=== PATIENT | female | born 1985 | race Caucasian/White ===

== ENCOUNTER → 2020-01-04 13:13 | Outpatient (CLI) | payer OTHER, SELFPAY ==
--- NOTE | ~2020-01-04 | MR_ITS ---
EXAMINATION: MR knee RT wo con DATE: 01/04/2020 14:28 INDICATION: Right knee strain with several months of intermittent generalized right knee pain TECHNIQUE: Magnetic resonance imaging (MRI) of the right knee was performed without intravenous contr ast. Sequences included coronal PD-weighted FSE, coronal PD-weighted FS FSE, sagittal T2-weighted FS E, sagittal PD-weighted FS FSE and axial PD weighted fat saturated FSE. COMPARISON: None. FINDINGS: Medial compartment: Medial meniscus is normal. Articular cartilage is normal. Lateral compartment: Lateral meniscus is normal. Articular cartilage is normal. Patellofemoral compartment: There is deep chondral fissuring at the lateral patellar facet and apical ridge. Minimal underlying s ubchondral edema at the apical ridge and immediately adjacent medial side of the lateral facet. Troch lear cartilage is normal. Ligaments and tendons: Anterior and posterior cruciate ligaments are normal. The medial collateral ligament and fibular adonay ateral ligament complex are normal. The extensor mechanism is normal. The visualized medial and later al hamstring tendons as well as the iliotibial band are normal. Fluid: Physiologic amount of fluid in the joint space. No loose osteochondral bodies identified. Osseous/other: Slight lateral patellar tilt and approximately 6 mm lateral patellar subluxation relative to the troc hlear groove. Aside from the minimal subarticular edema at the patella there is normal marrow signal. Small low signal intensity bone island underlying the anterior aspect of the medial tibial plateau. No fracture or pathologic marrow replacing process. IMPRESSION: 1. Mild lateral patellar tilt and subluxation with high-grade chondromalacia with deep fissuring and minimal underlying subarticular edema at the patellar apical ridge and lateral facet. Otherwise unrem arkable right knee MRI. Reviewed, dictated and finalized at location A. IMPRESSION: 1. Mild lateral patellar tilt and subluxation with high-grade chondromalacia wi th deep fissuring and minimal underlying subarticular edema at the patellar api herson ridge and lateral facet. Otherwise unremarkable right knee MRI.
== END ==
DX: M25.561 Pain in right knee (principal)
CPT/HCPCS: 73721

== ENCOUNTER 2020-02-11 15:00 | Outpatient (RCR) | payer OTHER, SELFPAY ==
--- NOTE | 2020-01-13 16:11 | PTOPEVAL ---
Thank you for referring Anahi Mahajan to [facility]. Please review, sign, date and return this plan of care DENIZ. Pt referred to therapy due to right knee pain with patellar tracking impairments. She requires additional skilled therapy to address noted impairments. Cont PT 2x/wk x 3 wk to achieve therapy goals. I agree with and certify that the following plan of care is medically necessary. Referring Physician Date Referring Provider: *PT Outpatient Evaluation Start: 01/13/20 14:51 Freq: Status: Active Protocol: Document 01/13/20 14:51 ANTHONY (Rec: 01/13/20 15:46 ANTHONY [id number]) Therapy Assessment Status Assessment Status Assessment Status Evaluation Outpatient Past Medical History Past Medical History Source of Past Medical History Patient,Recalled from Previous Visit, Confirmed with Patient /Family Neurological History Hx Neurological Disorders No Significant History Cardiovascular History Hx Cardiac Disorders No Significant History Respiratory History Hx Respiratory Disorders No Significant History Gastrointestinal History Hx Gastrointestinal Disorders No Significant History Genitourinary History Hx Genitourinary Disorders No Significant History Musculoskeletal History Hx Musculoskeletal Disorders No Significant History Hematological History Hx Hematological Disorders No Significant History Endocrine History Hx Endocrine Disorders No Significant History HEENT History Hx Eye Surgery Yes: LASIK Hx Other HEENT Disorders Yes: WISDOM TEETH SURGICALLY REMOVED Integumentary History Hx Skin Disorders No Significant History Reproductive History Hx Abnormal Uterine Bleeding Yes Hx Other Reproductive Disorders Yes: D&C FOR MISSED AB Psychosocial History Hx Psychiatric Disorders No Significant History Pain History History of Any Previous or Ongoing No Significant History Instance of Pain Anesthesia History Hx Post-Op Nausea/Vomiting Yes Evaluation Information Problem Diagnosis right knee pain, paterllofemoral tracking problem. Onset 08/26/19 Subjective Information She had to catch pt falling to Query Text:As Reported By Patient/ the floor on 08/26/19. She Family braced the pt's fall with her right knee. Reports the knee felt bruised afterwards. She felt swelling of the knee. She was furloughed for a few weeks with decreased activities, but the pain continued when
--- NOTE | 2020-02-11 15:56 | PTOPEVAL ---
Thank you for referring Anahi Mahajan to [facility].? Pt has received 6 therapy visits to address right knee pain. She has improved pain, improved LE strength and improved performance with advanced movement task. She is indep with her HEP. She continues to have intermittent right knee pain that is not consistent with testing or activities. Will hold chart open for 30 day then DC if no additional therapy planned. Please review, sign, date and return this plan of care DENIZ. I agree with and certify that the following plan of care is medically necessary. Referring Physician Date Attending Provider: PHYSICIAN NOT ON STAFF Physical Therapy progress note *PT Outpatient Evaluation Start: 01/13/20 14:51 Freq: Status: Active Protocol: Document 02/11/20 15:02 CAP (Rec: 02/11/20 15:52 [facility] [id number]) Therapy Assessment Status Assessment Status Assessment Status Re-evaluation Outpatient Past Medical History Past Medical History Source of Past Medical History Patient,Recalled from Previous Visit, Confirmed with Patient /Family Neurological History Hx Neurological Disorders No Significant History Cardiovascular History Hx Cardiac Disorders No Significant History Respiratory History Hx Respiratory Disorders No Significant History Gastrointestinal History Hx Gastrointestinal Disorders No Significant History Genitourinary History Hx Genitourinary Disorders No Significant History Musculoskeletal History Hx Musculoskeletal Disorders No Significant History Hematological History Hx Hematological Disorders No Significant History Endocrine History Hx Endocrine Disorders No Significant History HEENT History Hx Eye Surgery Yes: LASIK Hx Other HEENT Disorders Yes: WISDOM TEETH SURGICALLY REMOVED Integumentary History Hx Skin Disorders No Significant History Reproductive History Hx Abnormal Uterine Bleeding Yes Hx Other Reproductive Disorders Yes: D&C FOR MISSED AB Psychosocial History Hx Psychiatric Disorders No Significant History Pain History History of Any Previous or Ongoing No Significant History Instance of Pain Anesthesia History Hx Post-Op Nausea/Vomiting Yes Evaluation Information Problem Diagnosis right knee pain, paterllofemoral tracking problem. Onset 08/26/19 Additional Evaluation Detail She had to catch pt falling to the floor on 08/26/19. She braced the pt's fall with her right knee. Reports the knee felt bruised afterwards. Subjective Information She denies any swelling of the Query Text:As Reported By Patient/ knee.
--- NOTE | 2020-03-01 13:35 | PCPTNOTE ---
Admitting Provider: Attending Provider: PHYSICIAN NOT ON STAFF Patient:Anahi Mahajan Date of :1985 Discharge Note Patient has not returned for any further treatments since 02/11/2020, therefore she will be discharged at this time. Patient?s initial visit was on 01/13/2020 14:45 and she had a total of 6 visits. The goals have been met at this time. Thank you for referring this patient to [facility]. Please review, sign, date and return this discharge summary DENIZ. I have been updated about the patient's current status and I agree with discharge from the above service at this time. Referring Physician Date
== END 2020-03-01 14:14 | disposition home or self-care (01) ==
LOC: ANHPT 15:00
DX: M25.561 Pain in right knee (principal)
CPT/HCPCS: 97035; 97110; 97112; 97116; 97140; 97161

== ENCOUNTER 2020-04-15 15:45 | Outpatient (RCR) | payer OTHER, SELFPAY ==
--- NOTE | 2020-03-14 15:21 | PTOPEVAL ---
Thank you for referring Anahi Mahajan to [facility].? The patient is scheduled to be seen for therapy? 2 x/week for 4 weeks. Please review, sign, date and return this plan of care DENIZ. I agree with and certify that the following plan of care is medically necessary. Referring Physician Date Admitting Provider: Attending Provider: Dr. Marco Hinojosa MD *PT Outpatient Evaluation Start: 03/14/20 14:03 Freq: Status: Active Protocol: Document 03/14/20 14:05 ANTHONY (Rec: 03/14/20 15:02 ANTHONY [id number]) Therapy Assessment Status Assessment Status Assessment Status Evaluation Outpatient Past Medical History Past Medical History Source of Past Medical History Patient,Recalled from Previous Visit, Confirmed with Patient /Family Neurological History Hx Neurological Disorders No Significant History Cardiovascular History Hx Cardiac Disorders No Significant History Respiratory History Hx Respiratory Disorders No Significant History Gastrointestinal History Hx Gastrointestinal Disorders No Significant History Genitourinary History Hx Genitourinary Disorders No Significant History Musculoskeletal History Hx Musculoskeletal Disorders No Significant History Hematological History Hx Hematological Disorders No Significant History Endocrine History Hx Endocrine Disorders No Significant History HEENT History Hx Eye Surgery Yes: LASIK Hx Other HEENT Disorders Yes: WISDOM TEETH SURGICALLY REMOVED Integumentary History Hx Skin Disorders No Significant History Reproductive History Hx Abnormal Uterine Bleeding Yes Hx Other Reproductive Disorders Yes: D&C FOR MISSED AB Psychosocial History Hx Psychiatric Disorders No Significant History Pain History History of Any Previous or Ongoing No Significant History Instance of Pain Anesthesia History Hx Post-Op Nausea/Vomiting Yes Evaluation Information Problem Diagnosis right knee pain, patellar maltracking, chondromaliacia/ chondrosis Onset 08/26/19 Cause catching a pt at work Additional Evaluation Detail She had to catch pt falling to the floor on 08/26/19. She braced the pt's fall with her right knee. Reports the knee felt bruised afterwards. She felt swelling of the knee. She works at [employer]. She has received 6 therapy visits from 01/13/20-
--- NOTE | 2020-04-12 16:29 | PTOPEVAL ---
Thank you for referring Anahi Mahajan to [facility].? The patient is scheduled to be seen for therapy?1 final visit to complete HEP and skilled teaching. She has achieved her therapy goals at this time. Please review, sign, date and return this plan of care DENIZ. I agree with and certify that the following plan of care is medically necessary. Referring Physician Date Referring Provider: Dr. Marco Hinojosa *PT Outpatient Evaluation Start: 03/14/20 14:03 Freq: Status: Active Protocol: Document 04/12/20 15:32 CAP (Rec: 04/12/20 16:16 CAP [id number]) Therapy Assessment Status Assessment Status Assessment Status Re-evaluation Evaluation Information Problem Diagnosis right knee pain, patellar maltracking, chondromaliacia/ chondrosis Onset 08/26/19 Cause catching a pt at work Additional Evaluation Detail She had to catch pt falling to the floor on 08/26/19. She braced the pt's fall with her right knee. Reports the knee felt bruised afterwards. She felt swelling of the knee. She works at [email or web address]. She has received 6 therapy visits from 01/13/20-02/11/20 to address her knee pain. [ End ] Subjective Information She was seen by an orthopedic Query Text:As Reported By Patient/ MD who gave her a steroid Family injection in the right knee. She denies tightness on the posterior/medial knee aspect since she has been stretching the leg muscles. She reports her hamstring muscle cont to feel tight and ropey. She denies any acheness on sup knee region. She reports improved puffiness of the knee. Denies any sharp pain behind the knee cap. Denies acheness into right thigh. She is performing her HEP a few times a week without increased pain. She is performing yoga and fitness routine without limitations or pain. She did feel like the le
--- NOTE | 2020-04-15 16:14 | PCPTNOTE ---
Admitting Provider: Attending Provider: PHYSICIAN NOT ON STAFF Patient:Anahi Mahajan Date of :1985 Discharge Note Patient has received 8 therapy visits from 03/14/2020 to 04/15/20. She is indep with her home exercise program and understanding of self-management of her knee pain and progression of her fitness program to prevent knee strain and injury. The goals have been met at this time. Thank you for referring this patient to [facility]. Please review, sign, date and return this discharge summary DENIZ. I have been updated about the patient's current status and I agree with discharge from the above service at this time. Referring Physician Date
== END 2020-04-18 10:57 | disposition home or self-care (01) ==
LOC: ANHPT 15:45
DX: M22.41 Chondromalacia patellae, right knee (principal); M25.561 Pain in right knee
CPT/HCPCS: 97035; 97110; 97112; 97161

== ENCOUNTER 2020-11-29 08:43 | Outpatient (CLI) | payer OTHER, SELFPAY ==
[2020-11-29 09:35] LABS: Basophils Percent Auto 0.7 % (0.2-1.2); Eosinophils Absolute Auto 0.1 K/mm3 (0-0.3); Eosinophils Percent Auto 1.1 % (0-4.4); Hematocrit 41.6 % (37.0-47.0); Immature Granulocyte Absolute 0.01 K/mm3 (0.00-0.031); Immature Granulocyte Percent A 0.2 % (0-0.5); Lymphocytes Absolute Auto 1.94 K/mm3 (0.9-3.2); Lymphocytes Percent Auto 35.2 % (18.3-44.2); Mean Corpuscular HGB Conc 33.7 g/dl (32-36); Mean Corpuscular Volume 95.2 fl (80-100); Mean Platelet Volume 9.3 fl (7.4-10.4); Monocytes Absolute Auto 0.4 K/mm3 (0.1-0.6); Monocytes Percent Auto 6.7 % (2.6-8.5); Neutrophils Absolute Auto 3.1 K/mm3 (1.3-6.7); Neutrophils Percent Auto 56.1 % (45.5-73.1); Platelet Count Result 283 k/mm3 (150-375); Red Blood Count 4.37 M/mm3 (4.2-5.4); Red Cell Distribution Width 12.7 % (11.5-14.5); White Blood Count 5.5 K/mm3 (4.5-10.0)
[2020-11-29 09:52] LABS: Alanine Aminotransferase 19 U/L (4-35); Albumin Level 4.6 g/dL (3.5-5.1); Alkaline Phosphatase 44 U/L (38-126); Anion Gap 10 mmol/L (8-16); Aspartate Amino Transferase 26 U/L (14-36); Bilirubin,Total 0.8 mg/dL (0.2-1.3); Blood Urea Nitrogen 14 mg/dL (7-17); Calcium 9.5 mg/dL (8.4-10.2); Carbon Dioxide 25 mmol/L (22-30); Chloride 106 mmol/L (98-107); Cholesterol 171 mg/dL (0-200); Estimated Glomerular Filt Rate > 60; Glucose 84 mg/dL (65-105); HDL Direct 83 mg/dL; Sodium 141 mmol/L (137-145); Triglycerides 54 mg/dL (<150)
[2020-11-29 10:03] LABS: LDL Cholesterol Direct 63 mg/dL
[2020-11-29 10:18] LABS: Vitamin D 25 Hydroxy 98.6 ng/mL
== END 2020-11-29 08:44 | disposition home or self-care (01) ==
PROVIDERS: PCP Physician Assistant; Visit Provider Physician Assistant
DX: Z00.00 Encounter for general adult medical examination without abnormal findings (principal)
CPT/HCPCS: 36415; 80053; 80061; 82306; 84443; 85025

== ENCOUNTER 2020-12-03 08:12 | Emergency (ER) | payer OTHER, SELFPAY ==
--- NOTE | ~2020-12-03 | XR_ITS ---
EXAMINATION: XR chest 2V EXAM DATE: 12/03/2020 08:24 INDICATION: Central chest pain. TECHNIQUE: Frontal and lateral projections of the chest obtained and reviewed. Comparison is made to prior examination from 03/07/2011. FINDINGS: Moderate hyperinflation. The lungs are clear. There are no pleural effusions. The cardiom ediastinal silhouette is within normal limits. There is no pneumothorax suspected. Mild thoracic sc oliosis. IMPRESSION: 1. No acute cardiopulmonary findings. 2. Hyperinflation. Reviewed, dictated and finalized at location A.
--- NOTE | 2020-12-03 08:16 | ECG_ITS ---
Measurements Intervals [place] Rate: 101 P: 71 WV: 153 QRS: 62 QRSD: 93 T: 33 QT: 322 QTc: 419 Interpretive Statements SINUS TACHYCARDIA BORDERLINE ECG Electronically Signed On 12-03-2020 8:42:58 CDT by Ted Kingston D.O.
[2020-12-03 08:18] VITALS: BP 146/98; PULSE 114; RESP 14; TEMP 36.8; O2SAT 100
[2020-12-03] MEDS: KETOROLAC 30 MG/ML VIAL (*BKC) IV PUSH (08:46)
[2020-12-03 08:50] LABS: Basophils Percent Auto 0.5 % (0.2-1.2); Eosinophils Absolute Auto 0.1 K/mm3 (0-0.3); Eosinophils Percent Auto 1.1 % (0-4.4); Hematocrit 42.9 % (37.0-47.0); Hemoglobin 14.5 g/dL (12.0-15.0); Immature Granulocyte Absolute 0.02 K/mm3 (0.00-0.031); Immature Granulocyte Percent A 0.2 % (0-0.5); Lymphocytes Absolute Auto 1.71 K/mm3 (0.9-3.2); Lymphocytes Percent Auto 20.5 % (18.3-44.2); Mean Corpuscular HGB Conc 33.8 g/dl (32-36); Mean Corpuscular Hemoglobin 32.5 pg (26-34); Mean Corpuscular Volume 96.2 fl (80-100); Mean Platelet Volume 9.5 fl (7.4-10.4); Monocytes Absolute Auto 0.5 K/mm3 (0.1-0.6); Neutrophils Percent Auto 71.7 % (45.5-73.1); Platelet Count Result 269 k/mm3 (150-375); Red Blood Count 4.46 M/mm3 (4.2-5.4); Red Cell Distribution Width 12.8 % (11.5-14.5); White Blood Count 8.4 K/mm3 (4.5-10.0)
[2020-12-03 09:06] LABS: Anion Gap 10 mmol/L (8-16); Blood Urea Nitrogen 12 mg/dL (7-17); Calcium 9.6 mg/dL (8.4-10.2); Carbon Dioxide 24 mmol/L (22-30); Chloride 106 mmol/L (98-107); Estimated CRCL calculation 78 ml/min; Estimated Glomerular Filt Rate > 60; Glucose 120 mg/dL (65-105); Potassium 3.4 mmol/L (3.4-5.0); Sodium 140 mmol/L (137-145)
[2020-12-03 09:09] LABS: INR 1.1; Partial Thromboplastin Time 27.3 SECONDS (22.3-36.8); Prothrombin Time 14.3 Seconds (11.1-14.7)
[2020-12-03 09:12] LABS: D Dimer 0.28 ug/mL (<0.48)
[2020-12-03 09:18] LABS: Troponin I < 0.012 ng/mL (0.000-0.034)
--- NOTE | 2020-12-03 10:08 | ED.CHESTPAIN ---
HPI - Chest Pain General Chief Complaint: Chest Pain Stated Complaint: Chest Pain Time Seen by Provider: 12/03/20 08:20 History of Present Illness HPI narrative: Patient is a 35-year-old female who presents ER with chest pain intermittent over the last month. Worse with deep breath. No fevers or chills or sweats. Denies sinus congestion or productive cough. No hemoptysis. No lower extremity swelling or calf cramping. No previous history of blood clots. She is on low-dose control. Denies exertional chest pain. Cannot report any alleviating factors. Pain seems to be more on the left side without radiation. Related Data Home Medications Medication Instructions Recorded Confirmed Juice Plus 4 cap PO DAILY 06/05/19 06/18/19 multivitamin 1 tablet PO DAILY 06/05/19 06/18/19 [id number] oil [[place]-3 1 cap PO DAILY 06/05/19 06/18/19 Fish Oil] Allergies Allergy/AdvReac Type Severity Reaction Status Date / Time No Known Allergies Allergy Unverified 12/03/20 08:26 Review of Systems Review of Systems: All systems reviewed & are unremarkable except as noted in HPI and below Constitutional: Constitutional: Denies chills, Denies fever(s) and Denies weakness ENT: Denies nasal congestion and Denies sore throat Cardiovascular: Cardiovascular: Reports chest pain, Denies rapid heart rate and Denies radiating jaw, neck or arm pain Respiratory: Respiratory: Denies cough, Denies dyspnea and Denies wheezing Comments: No hemoptysis Gastrointestinal: Gastrointestinal: Denies nausea and Denies vomiting PMFSH Past Medical History Medical History (Updated 12/03/20 @ 10:13 by Mohit Stringer MD) Abnormal uterine bleeding (AUB) History of hysteroscopy Social History Social History (System 08/02/20 @ 09:59 by Chaim Hernandez) Smoking status: Never smoker Alcohol intake: current Exam Narrative: Exam Narrative: GENERAL: Well-appearing, well-nourished, and in no acute distress. HEAD: Normocephalic, atraumatic. CHEST: Clear to auscultation. No respiratory distress. HEART: Tachycardic and regular. No murmur heard. Normal peripheral pulses. ABDOMEN: Soft, nontender, nondistended. EXTREMITIES: Normal range of motion. No edema. SKIN: Warm, dry, no rash. NEURO: Alert and oriented x3. PSYCH: Normal mood and affect. Course Course Emergency Course: Patient informed of results. Modest improvement of pain with Toradol. D-dimer negative, chest x-ray clear, negative troponin with normal EKG. HR normalized w/o intervention. Recommend follow-up with PCP and scheduled anti-inflammatory medication. Vital Signs Vital signs: Vital Signs Temperature 98.3 F 12/03/20 08:18 Pulse Rate 114 H 12/03/20 08:18 Respiratory Rate 14 12/03/20 08:18 Blood Pressure 146/98 H 12/03/20 08:18 Pulse Oximetry 100 12/03/20 08:18 Temperature 98.3 F 12/03/20 08:18 Pulse Rate 114 H 12/03/20 08:18 Respiratory Rate 14 12/03/20 08:18 Blood Pressure 146/98 H 12/03/20 08:18 Pulse Oximetry 100 12/03/20 08:18 MDM - Chest Pain Lab Data Result diagrams: 12/03/20 08:34 12/03/20 08:35 Labs: Lab Results 12/03/20 12/03/20 12/03/20 Range/Units 08:34 08:35 08:35 WBC 8.4 (4.5-10.0) K/mm3 RBC 4.46 (4.2-5.4) M/mm3 Hgb 14.5 (12.0-15.0) g/dL Hct 42.9 (37.0-47.0) % MCV 96.2 (80-100) fl MCH 32.5 (26-34) pg MCHC 33.8 (32-36) g/dl RDW 12.8 (11.5-14.5) % Plt Count 269 (150-375) k/mm3 MPV 9.5 (7.4-10.4) fl Immature Gran % (Auto) 0.2 (0-0.5) % Neut % (Auto) 71.7 (45.5-73.1) % Lymph % (Auto) 20.5 (18.3-44.2) % Hockley % (Auto) 6.0 (2.6-8.5) % Eos % (Auto) 1.1 (0-4.4) % Baso % (Auto) 0.5 (0.2-1.2) % Lymph # (Auto) 1.71 (0.9-3.2) K/mm3 Hockley # (Auto) 0.5 (0.1-0.6) K/mm3 Eos # (Auto) 0.1 (0-0.3) K/mm3 Baso # (Auto) 0.0 (0.0-0.1) K/mm3 Abs Immat Gran (auto) 0.02 (0.00-0.031) K/mm3 Absolute Neuts
[2020-12-03 10:18] VITALS: BP 116/82; PULSE 85; RESP 16; O2SAT 97
== END 2020-12-03 10:30 | disposition home or self-care (01) ==
PROVIDERS: Emergency Provider Emergency Medicine; PCP Physician Assistant
DX: R07.89 Other chest pain (principal); R00.0 Tachycardia, unspecified
CPT/HCPCS: 36415; 71046; 80048; 84484; 85025; 85380; 85610; 85730; 93005; 96374; 99284; J1885

== ENCOUNTER 2021-12-01 13:21 | Outpatient (CLI) | payer OTHER, SELFPAY ==
[2021-12-01 08:37] LABS: Basophils Percent Auto 0.8 % (0.2-1.2); Eosinophils Absolute Auto 0.1 K/mm3 (0-0.3); Eosinophils Percent Auto 2.4 % (0-4.4); Hematocrit 42.8 % (37.0-47.0); Hemoglobin 14.5 g/dL (12.0-15.0); Immature Granulocyte Absolute 0.02 K/mm3 (0.00-0.031); Immature Granulocyte Percent A 0.4 % (0-0.5); Lymphocytes Absolute Auto 1.87 K/mm3 (0.9-3.2); Lymphocytes Percent Auto 37.2 % (18.3-44.2); Mean Corpuscular HGB Conc 33.9 g/dl (32-36); Mean Corpuscular Hemoglobin 33.2 pg (26-34); Mean Corpuscular Volume 97.9 fl (80-100); Mean Platelet Volume 9.4 fl (7.4-10.4); Monocytes Absolute Auto 0.4 K/mm3 (0.1-0.6); Monocytes Percent Auto 8.5 % (2.6-8.5); Neutrophils Absolute Auto 2.6 K/mm3 (1.3-6.7); Neutrophils Percent Auto 50.7 % (45.5-73.1); Platelet Count Result 251 k/mm3 (150-375); Red Blood Count 4.37 M/mm3 (4.2-5.4); Red Cell Distribution Width 12.5 % (11.5-14.5)
[2021-12-01 08:57] LABS: Alanine Aminotransferase 17 U/L (6-35); Albumin Level 4.5 g/dL (3.5-5.1); Alkaline Phosphatase 45 U/L (38-126); Anion Gap 5 mmol/L (8-16); Aspartate Amino Transferase 20 U/L (14-36); Bilirubin,Total 0.8 mg/dL (0.2-1.3); Blood Urea Nitrogen 16 mg/dL (7-17); Calcium 9.1 mg/dL (8.4-10.2); Carbon Dioxide 27 mmol/L (22-30); Chloride 107 mmol/L (98-107); Cholesterol 181 mg/dL (0-200); Estimated Glomerular Filt Rate > 60; Glucose 80 mg/dL (65-110); HDL Direct 70 mg/dL; Potassium 4.4 mmol/L (3.4-5.0); Sodium 139 mmol/L (137-145); Triglycerides 77 mg/dL (<150)
[2021-12-01 09:08] LABS: LDL Cholesterol Direct 83 mg/dL
[2021-12-01 10:25] LABS: Vitamin D 25 Hydroxy 84.1 ng/mL
== END 2021-12-01 13:22 | disposition home or self-care (01) ==
LOC: ANHLAB 12-14 13:21
PROVIDERS: PCP Physician Assistant; Visit Provider Physician Assistant
DX: Z00.00 Encounter for general adult medical examination without abnormal findings (principal)
CPT/HCPCS: 80053; 80061; 80307; 82306; 84443; 85025

== ENCOUNTER 2021-12-04 02:04 | Day surgery (SDC) | payer OTHER, SELFPAY ==
[2021-11-15 15:22] VITALS: BMI 24.3
[2021-12-04 10:10] VITALS: BP 127/87; PULSE 76; RESP 18; TEMP 36.4; O2SAT 100; BMI 24.5
[2021-12-04] MEDS: LACTATED RINGERS 1,000 ML 150 ML IV CONT (10:37)
--- NOTE | 2021-12-04 10:38 | WPDANESEPPF ---
Anes - Initial Pre Proc Eval Procedure: Operation Date: 12/04/21 11:30 Proposed Procedures p Screening Colonoscopy - Lazaro Miguel MD Date/Time: 12/04/21 10:38 Surgeon: Lazaro Miguel MD Pre Op Diagnosis: family hx colon polyps, neoplasm screening Patient Data Age: 36 Gender: F Height: 1.68 m Weight: 68.9 kg Last Vital Signs Temp 36.4 C 12/04/21 10:10 Pulse 76 12/04/21 10:10 Resp 18 12/04/21 10:10 BP 127/87 12/04/21 10:10 Pulse Ox 100 12/04/21 10:10 O2 Del Method Room Air 12/04/21 10:10 Allergies Allergy/AdvReac Type Severity Reaction Status Date / Time No Known Allergies Allergy Verified 12/04/21 10:18 Home Medications Medication Instructions Recorded Confirmed Type Juice Plus 4 cap PO DAILY 06/05/19 12/04/21 History multivitamin 1 tablet PO DAILY 06/05/19 12/04/21 History sodium sul 1.479 gram-potas ch See Rx Instructions PO PER PKG DIR 11/02/21 12/04/21 Rx 0.188 gram-magnes sul 0.225 gram #24 tabs tablet (Sutab) sodium sul 1.479 gram-potas ch See Rx Instructions PO PER PKG DIR 11/03/21 12/04/21 Rx 0.188 gram-magnes sul 0.225 gram #24 tabs tablet (Sutab) norethindrone 1 mg-ethinyl 1 tablet PO DAILY 11/15/21 12/04/21 History estradiol 10 mcg (24)-iron 10 mcg(2) tablet (Lo Loestrin Fe) Patient hx anesthesia problems: none Family hx anesthesia problems: none Results Review: All pre-operative results and documents have been reviewed as part of the pre-operative evaluation. [facility] Past Medical History Medical History (Updated 12/04/20 @ 00:00 by Sehri Caballero) Abnormal uterine bleeding (AUB) Surgical History Surgical History (System 08/02/20 @ 09:59 by Chaim Hernandez) History of hysteroscopy Social History Social History (System 08/02/20 @ 09:59 by Chaim Hernandez) Years smoked: 10 Smoking status: Never smoker Tobacco type: cigarettes Alcohol intake: current Drinks per week: 4 Substance use: never Substance use type: does not use Living arrangements: with family Spiritual care concerns: No Anes - Eval Final PreProcedure Day of Procedure 12/04/21 10:38 Patient weight: normal Heart: regular rate and rhythm Lungs: clear to auscultation Airway: Mallampati scale class II Neurological: alert and oriented Last oral intake: >/= 8 hours ASA classification: I Emergent: no Anesthetic plan: proceed Anesthesia type and monitoring: general GIVS and standard monitoring Results Review: All pre-operative results and documents have been reviewed as part of the pre-operative evaluation. Informed Consent: The patient's anesthetic plan and its attendant risks and benefits were discussed with the patient/family/POA. Questions were solicited and answers provided to the satisfaction of the patient/family/POA.
--- NOTE | 2021-12-04 10:59 | PM.HPGS ---
History of Present Illness History of Present Illness Consent: Risks, benefits, and alternatives have been discussed and questions answered. Patient agrees to proceed with procedure. Chief complaint: family hx colon polyps, neoplasm screening Narrative: Anahi Mahajan is a 36 year old female With a strong family history of colon cancer who was referred for colon cancer screening. Her paternal grandfather had colon cancer. Both her parents have had polyps. Also sister had a polyp. Review of Systems Review of Systems: All systems reviewed & are unremarkable except as noted in HPI and below PMFSH Past Medical History Medical History (Updated 12/04/21 @ 11:00 by Lazaro Miguel MD) Abnormal uterine bleeding (AUB) Surgical History Surgical History History of hysteroscopy Social History Social History Years smoked: 10 Smoking status: Never smoker Tobacco type: cigarettes Alcohol intake: current Drinks per week: 4 Substance use: never Substance use type: does not use Living arrangements: with family Spiritual care concerns: No Meds Home Medications and Allergies Home Medications Medication Instructions Recorded Confirmed Type Juice Plus 4 cap PO DAILY 06/05/19 12/04/21 History multivitamin 1 tablet PO DAILY 06/05/19 12/04/21 History sodium sul 1.479 gram-potas ch See Rx Instructions PO PER PKG DIR 11/02/21 12/04/21 Rx 0.188 gram-magnes sul 0.225 gram #24 tabs tablet (Sutab) sodium sul 1.479 gram-potas ch See Rx Instructions PO PER PKG DIR 11/03/21 12/04/21 Rx 0.188 gram-magnes sul 0.225 gram #24 tabs tablet (Sutab) norethindrone 1 mg-ethinyl 1 tablet PO DAILY 11/15/21 12/04/21 History estradiol 10 mcg (24)-iron 10 mcg(2) tablet (Lo Loestrin Fe) Allergies Allergy/AdvReac Type Severity Reaction Status Date / Time No Known Allergies Allergy Verified 12/04/21 10:18 Vital Signs Vital Signs - 24 hr 12/04/21 10:10 Temperature 36.4 C Pulse Rate 76 Respiratory Rate 18 Blood Pressure 127/87 Pulse Oximetry 100 Oxygen Delivery Room Air Exam Const: General: alert Orientation/consciousness: patient oriented x3 Resp: Auscultation: clear to auscultation bilaterally Cardio: Rhythm: regular rhythm GI: GI Palp: Yes Soft to palpation and No Tenderness to palpation present (GI) Neuro: General: patient oriented x3 Assessment and Plan Assessment and plan (1) Colon cancer screening: Code(s): Z12.11 - Encounter for screening for malignant neoplasm of colon Status: Acute Assessment and Plan: Colonoscopy with possible biopsy or polypectomy or cautery or injection of substances.
[2021-12-04 11:49] VITALS: BP 95/57; PULSE 64; RESP 16; O2SAT 95
[2021-12-04 11:59] VITALS: BP 113/77; PULSE 65; RESP 18; O2SAT 98
[2021-12-04 12:09] VITALS: BP 112/66; PULSE 57; RESP 23; O2SAT 100
== END 2021-12-04 12:25 | disposition home or self-care (01) ==
PROVIDERS: PCP Physician Assistant; Visit Provider Internal Medicine Gastroenterology
PROC: 0DJD8ZZ Inspection of Lower Intestinal Tract, Via Natural or Artificial Opening Endoscopic (ICD-10-PCS; CPT 45378; principal; 2021-12-04 11:30)
DX: Z12.11 Encounter for screening for malignant neoplasm of colon (principal); D12.8 Benign neoplasm of rectum; D12.4 Benign neoplasm of descending colon; D12.0 Benign neoplasm of cecum; Z83.71 Family history of colonic polyps; Z80.0 Family history of malignant neoplasm of digestive organs
CPT/HCPCS: 45381; 45385; 45380; 88305; J2704; J7120

== ENCOUNTER 2022-12-07 03:00 | Day surgery (SDC) | payer OTHER, SELFPAY ==
[2022-11-30 15:22] VITALS: BMI 25.8
--- NOTE | 2022-12-06 09:04 | PM.HPGS ---
History of Present Illness History of Present Illness Consent: Risks, benefits, and alternatives have been discussed and questions answered. Patient agrees to proceed with procedure. Chief complaint: hx colon polyps Narrative: Anahi Mahajan is a 37 year old female Who 1 year ago had removal of a large rectal polyp containing focal adenocarcinoma and high-grade dysplasia. Review of Systems Review of Systems: All systems reviewed & are unremarkable except as noted in HPI and below PMFSH Past Medical History Medical History Abnormal uterine bleeding (AUB) Colon polyps Surgical History Surgical History History of hysteroscopy Social History Social History Years smoked: 10 Smoking status: Former smoker Tobacco type: cigarettes Alcohol intake: current Drinks per week: 5 Substance use: never Substance use type: does not use Living arrangements: with family Spiritual care concerns: No Meds Home Medications and Allergies Home Medications Medication Instructions Recorded Confirmed Type Juice Plus 4 cap PO DAILY 06/05/19 11/30/22 History multivitamin 1 tablet PO DAILY 06/05/19 11/30/22 History norethindrone 1 mg-ethinyl 1 tablet PO DAILY 11/15/21 11/30/22 History estradiol 10 mcg (24)-iron 10 mcg(2) tablet (Lo Loestrin Fe) buspirone 15 mg tablet 15 mg PO 12/07/22 History Allergies Allergy/AdvReac Type Severity Reaction Status Date / Time No Known Allergies Allergy Verified 12/07/22 06:48 Exam Resp: Auscultation: clear to auscultation bilaterally Cardio: Rate: regular rate Rhythm: regular rhythm GI: GI Palp: Yes Soft to palpation and No Tenderness to palpation present (GI) Assessment and Plan Assessment and plan (1) History of rectal cancer: Code(s): Z85.048 - Personal history of other malignant neoplasm of rectum, rectosigmoid junction, and anus Status: Acute Assessment and Plan: Colonoscopy with possible biopsy or polypectomy or cautery or injection of substances.
--- NOTE | 2022-12-06 14:25 | WPDANESEPPF ---
Anes - Initial Pre Proc Eval Procedure: Operation Date: 12/07/22 08:00 Proposed Procedures p Colonoscopy - Lazaro Miguel MD Date/Time: 12/06/22 14:25 Surgeon: Lazaro Miguel MD Pre Op Diagnosis: hx colon polyps Patient Data Age: 37 Gender: F Height: 1.65 m Weight: 70.5 kg Allergies Allergy/AdvReac Type Severity Reaction Status Date / Time No Known Allergies Allergy Verified 12/07/22 06:48 Home Medications Medication Instructions Recorded Confirmed Type Juice Plus 4 cap PO DAILY 06/05/19 11/30/22 History multivitamin 1 tablet PO DAILY 06/05/19 11/30/22 History norethindrone 1 mg-ethinyl 1 tablet PO DAILY 11/15/21 11/30/22 History estradiol 10 mcg (24)-iron 10 mcg(2) tablet (Lo Loestrin Fe) buspirone 15 mg tablet 15 mg PO 12/07/22 History Patient hx anesthesia problems: none Family hx anesthesia problems: none Results Review: All pre-operative results and documents have been reviewed as part of the pre-operative evaluation. [facility] Past Medical History Medical History Abnormal uterine bleeding (AUB) Colon polyps Surgical History Surgical History History of hysteroscopy Social History Social History Years smoked: 10 Smoking status: Former smoker Tobacco type: cigarettes Alcohol intake: current Drinks per week: 5 Substance use: never Substance use type: does not use Living arrangements: with family Spiritual care concerns: No Anes - Eval Final PreProcedure Day of Procedure 12/06/22 14:25 Patient weight: normal Heart: regular rate and rhythm Lungs: clear to auscultation Airway: Mallampati scale class II Neurological: alert and oriented Last oral intake: >/= 8 hours ASA classification: II Emergent: no Anesthetic plan: proceed Anesthesia type and monitoring: general GIVS and standard monitoring Results Review: All pre-operative results and documents have been reviewed as part of the pre-operative evaluation. Informed Consent: The patient's anesthetic plan and its attendant risks and benefits were discussed with the patient/family/POA. Questions were solicited and answers provided to the satisfaction of the patient/family/POA.
[2022-12-07 06:55] VITALS: BP 127/80; PULSE 83; RESP 20; TEMP 36.2; O2SAT 100
[2022-12-07] MEDS: LACTATED RINGERS 1,000 ML 150 ML IV CONT (07:03)
[2022-12-07 08:14] VITALS: BP 96/63; PULSE 78; RESP 21; O2SAT 100
[2022-12-07 08:24] VITALS: BP 113/70; PULSE 72; RESP 21; O2SAT 100
[2022-12-07 08:34] VITALS: BP 112/68; PULSE 65; RESP 21; O2SAT 100
== END 2022-12-07 08:39 | disposition home or self-care (01) ==
PROVIDERS: PCP Physician Assistant; Visit Provider Internal Medicine Gastroenterology
PROC: 0DJD8ZZ Inspection of Lower Intestinal Tract, Via Natural or Artificial Opening Endoscopic (ICD-10-PCS; CPT 45378; principal; 2022-12-07 08:00)
DX: Z12.11 Encounter for screening for malignant neoplasm of colon (principal); K62.1 Rectal polyp; Z87.891 Personal history of nicotine dependence
CPT/HCPCS: 45380; 88305; J2704; J7120

== ENCOUNTER 2023-01-03 07:33 | Outpatient (CLI) | payer OTHER, SELFPAY ==
[2023-01-03 08:15] LABS: Basophils Percent Auto 0.6 % (0.2-1.2); Eosinophils Absolute Auto 0.2 K/mm3 (0-0.3); Eosinophils Percent Auto 3.8 % (0-4.4); Hematocrit 41.9 % (37.0-47.0); Hemoglobin 14.1 g/dL (12.0-15.0); Immature Granulocyte Absolute 0.01 K/mm3 (0.00-0.031); Immature Granulocyte Percent A 0.2 % (0-0.5); Lymphocytes Absolute Auto 1.96 K/mm3 (0.9-3.2); Lymphocytes Percent Auto 37.1 % (18.3-44.2); Mean Corpuscular HGB Conc 33.7 g/dl (32-36); Mean Corpuscular Hemoglobin 32.8 pg (26-34); Mean Corpuscular Volume 97.4 fl (80-100); Mean Platelet Volume 9.2 fl (7.4-10.4); Monocytes Absolute Auto 0.4 K/mm3 (0.1-0.6); Monocytes Percent Auto 7.2 % (2.6-8.5); Neutrophils Absolute Auto 2.7 K/mm3 (1.3-6.7); Neutrophils Percent Auto 51.1 % (45.5-73.1); Platelet Count Result 257 k/mm3 (150-375); White Blood Count 5.3 K/mm3 (4.5-10.0)
[2023-01-03 08:28] LABS: Alanine Aminotransferase 23 U/L (6-35); Albumin Level 4.4 g/dL (3.5-5.1); Alkaline Phosphatase 50 U/L (38-126); Anion Gap 6 mmol/L (8-16); Aspartate Amino Transferase 23 U/L (14-36); Bilirubin,Total 0.4 mg/dL (0.2-1.3); Blood Urea Nitrogen 17 mg/dL (7-17); Calcium 8.6 mg/dL (8.4-10.2); Carbon Dioxide 28 mmol/L (22-30); Chloride 104 mmol/L (98-107); Cholesterol 158 mg/dL (0-200); Estimated Glomerular Filt Rate > 60; Glucose 79 mg/dL (65-110); HDL Direct 59 mg/dL; Potassium 3.7 mmol/L (3.4-5.0); Sodium 138 mmol/L (137-145); Triglycerides 63 mg/dL (<150)
[2023-01-03 08:39] LABS: LDL Cholesterol Direct 75 mg/dL
== END 2023-01-03 07:34 | disposition home or self-care (01) ==
LOC: ANHLAB 07:36
PROVIDERS: PCP Physician Assistant; Visit Provider Physician Assistant
DX: Z00.00 Encounter for general adult medical examination without abnormal findings (principal)
CPT/HCPCS: 36415; 80053; 80061; 82306; 84443; 85025

== ENCOUNTER → 2023-05-30 09:55 | Outpatient (CLI) | payer OTHER, SELFPAY ==
--- NOTE | ~2023-05-30 | MM_ITS ---
EXAMINATION: MM screening bran BI w kaylin HISTORY: Screening mammogram, family history of breast cancer in her mother. TECHNIQUE: Craniocaudal and mediolateral oblique 3-D tomosynthesis images were obtained and synthetic 2-D images were generated. CAD analysis was submitted and interpreted. COMPARISON: 11/18/2018 BREAST PARENCHYMAL COMPOSITION:The breasts are heterogeneously dense, which may obscure small masses. FINDINGS: No suspicious mass, calcification, or architectural distortion are identified in either brittany ast to suggest malignancy. There has been no suspicious interval change. IMPRESSION: No mammographic evidence of malignancy. Recommend routine screening mammography in one year. BI-RADS Category 1: Negative Reviewed, dictated and finalized at location M. WARE QUALITY TEST ENGINEER
== END ==
PROVIDERS: PCP Physician Assistant; Visit Provider Nurse Practitioner
DX: Z12.31 Encounter for screening mammogram for malignant neoplasm of breast (principal)
CPT/HCPCS: 77063; 77067

== ENCOUNTER 2024-04-18 06:51 | Outpatient (CLI) | payer OTHER, SELFPAY ==
[2024-04-18 07:51] LABS: Basophils Percent Auto 0.5 % (0.2-1.2); Eosinophils Absolute Auto 0.2 K/mm3 (0-0.3); Eosinophils Percent Auto 2.5 % (0-4.4); Hematocrit 42.1 % (37.0-47.0); Hemoglobin 14.4 g/dL (12.0-15.0); Immature Granulocyte Absolute 0.01 K/mm3 (0.00-0.031); Immature Granulocyte Percent A 0.2 % (0-0.5); Lymphocytes Absolute Auto 2.12 K/mm3 (0.9-3.2); Lymphocytes Percent Auto 35.5 % (18.3-44.2); Mean Corpuscular HGB Conc 34.2 g/dl (32-36); Mean Corpuscular Hemoglobin 33.3 pg (26-34); Mean Corpuscular Volume 97.2 fl (80-100); Mean Platelet Volume 9.2 fl (7.4-10.4); Monocytes Absolute Auto 0.5 K/mm3 (0.1-0.6); Monocytes Percent Auto 7.7 % (2.6-8.5); Neutrophils Absolute Auto 3.2 K/mm3 (1.3-6.7); Neutrophils Percent Auto 53.6 % (45.5-73.1); Platelet Count Result 248 k/mm3 (150-375); Red Blood Count 4.33 M/mm3 (4.2-5.4); Red Cell Distribution Width 12.3 % (11.5-14.5)
[2024-04-18 08:08] LABS: Alanine Aminotransferase 20 U/L (6-35); Albumin Level 4.5 g/dL (3.5-5.1); Alkaline Phosphatase 47 U/L (38-126); Anion Gap 10 mmol/L (4-12); Aspartate Amino Transferase 19 U/L (14-36); Bilirubin,Total 0.7 mg/dL (0.2-1.3); Blood Urea Nitrogen 16 mg/dL (7-17); Calcium 8.9 mg/dL (8.4-10.2); Carbon Dioxide 24 mmol/L (22-30); Chloride 105 mmol/L (98-107); Cholesterol 182 mg/dL (0-200); Estimated Glomerular Filt Rate > 60; Glucose 88 mg/dL (65-110); HDL Direct 62 mg/dL; Potassium 3.8 mmol/L (3.4-5.0); Sodium 139 mmol/L (137-145); Triglycerides 93 mg/dL (<150)
[2024-04-18 08:19] LABS: LDL Cholesterol Direct 84 mg/dL
[2024-04-18 09:11] LABS: Vitamin D 25 Hydroxy 80.4 ng/mL
== END 2024-04-18 06:52 | disposition home or self-care (01) ==
PROVIDERS: PCP Physician Assistant; Visit Provider Physician Assistant
DX: Z00.00 Encounter for general adult medical examination without abnormal findings (principal)
CPT/HCPCS: 36415; 80053; 80061; 82306; 84443; 85025

== ENCOUNTER 2024-06-04 09:57 | Outpatient (CLI) | payer OTHER, SELFPAY ==
--- NOTE | ~2024-06-04 | MM_ITS ---
EXAMINATION: MM screening bran BI w kaylin HISTORY: Screening TECHNIQUE: Craniocaudal and mediolateral oblique 3-D tomosynthesis images were obtained and synthetic 2-D images were generated. CAD analysis was submitted and interpreted. COMPARISON: Comparison to multiple prior studies sequentially, with oldest reviewed study dated 11/18. BREAST PARENCHYMAL COMPOSITION: Dense: The breasts are heterogeneously dense, which may obscure small masses FINDINGS: There is no evidence of suspicious mass, calcification, or architectural distortion to sugg est malignancy in either breast. There has been no suspicious interval change. IMPRESSION: 1. No mammographic evidence of malignancy. 2. Recommend routine screening mammography in one year. BI-RADS Category 1: Negative Reviewed, dictated and finalized at location B. ESCENT COORDINATOR
== END 2024-06-04 09:58 | disposition home or self-care (01) ==
PROVIDERS: PCP Physician Assistant; Visit Provider Nurse Practitioner
DX: Z12.31 Encounter for screening mammogram for malignant neoplasm of breast (principal)
CPT/HCPCS: 77063; 77067

== ENCOUNTER 2024-09-30 13:55 | Emergency (ER) | payer OTHER, SELFPAY ==
[2024-09-30 14:08] VITALS: BP 148/89; PULSE 99; RESP 17; TEMP 37.1; O2SAT 97
--- NOTE | 2024-09-30 14:09 | ED.LOWEXIN ---
HPI - Extremity Injury (Lower) General Chief Complaint: Extremity Injury, Lower Stated Complaint: swollen toe Time Seen by Provider: 09/30/24 14:09 Source: patient Mode of arrival: ambulatory Limitations: no limitations History of Present Illness HPI Narrative: 39 yo F presents with itching to R foot for the past several days. Has been itching foot with hand or using other foot to itch it. Noticed swelling and some redness today. Not painful. No injury. All systems reviewed and negative except as noted above. Related Data Home Medications ?Medication ?Instructions ?Recorded ?Confirmed ?Last Taken ?Type Juice Plus 4 cap PO DAILY 06/05/19 11/30/22 3 Days Ago History ~06/15/19 multivitamin 1 tablet PO DAILY 06/05/19 11/30/22 3 Days Ago History ~06/15/19 norethindrone 1 mg-ethinyl 1 tablet PO DAILY 11/15/21 11/30/22 Unknown History estradiol 10 mcg (24)-iron 10 mcg(2) tablet (Lo Loestrin Fe) buspirone 15 mg tablet 15 mg PO 12/07/22 Unknown History Allergies Allergy/AdvReac Type Severity Reaction Status Date / Time No Known Allergies Allergy Verified 09/30/24 14:07 Review of Systems Review of Systems: CONSTITUTIONAL: Denies fever, chills, or sweats. EYES: Denies visual changes, redness, or discharge. ENT: Denies rhinorrhea, congestion, sore throat, or otalgia. CARDIOVASCULAR: Denies chest pain, palpitations, or edema. RESPIRATORY: Denies cough or dyspnea. GASTROINTESTINAL: Denies abdominal pain, nausea, vomiting, or diarrhea. GENITOURINARY: Denies dysuria or hematuria. SKIN: Reports redness and itching to dorsal aspect R foot MUSCULOSKELETAL: Denies back pain, joint pain, or myalgia. NEUROLOGIC: Denies headache, numbness, or weakness. PSYCHIATRIC: Denies anxiety or depression. All other systems reviewed are negative, except as documented in HPI. [facility] Past Medical History Medical History Abnormal uterine bleeding (AUB) Colon polyps Surgical History Surgical History History of hysteroscopy Social History Social History Years smoked: 10 Smoking status: Former smoker Tobacco type: cigarettes Alcohol intake: current Drinks per week: 5 Substance use: never Substance use type: does not use Living arrangements: with family Spiritual care concerns: No Comments At time of signature, agree with nursing past medical, surgical, social and family history. There is no relevant family history pertinent to the presenting complaint. Exam Narrative: GENERAL: This is a well-nourished, well-developed patient, in no apparent distress. HEAD: normocephalic, atraumatic. EYES: PERRL. Sclera clear/white. Vision is grossly intact. EARS: External ears normal THROAT: Mucous membranes moist, posterior pharynx clear. NECK: Neck supple, non-tender without lymphadenopathy, masses or thyromegaly. CARDIOVASCULAR: Regular rate and rhythm without murmurs, gallops, or rubs. RESPIRATORY: Clear to auscultation. Breath sounds equal bilaterally. No wheezes, rales, or rhonchi. SKIN: warm, Dry, intact with no suspicious lesions or rash, good texture and turgor. NEURO: awake, alert, and oriented to person, place and time. There were no obvious focal neurologic abnormalities. EXTREMITIES: erythema and swelling to R foot, dorsal aspect. swelling worse to R little toe. warm to touch. no open wounds. Course Course Level of Care: Express Care Visit Vital Signs Vital signs: Reviewed MDM - Extremity Injury (Lower) MDM Narrative Medical decision making narrative: will treat erythema and swelling with antibiotic and steroid. Patient agrees with plan of care. Please be advised this is a medical document. It is intended for fwkz-ho-tqoz communication. It is written in medical language and may contain unfamiliar abbreviations or verbiage. Medical documents are intended to carry relevant information, facts as evident, and the clinical opinion of the practitioner at the time of the encounter. This report may have been done utilizing a voice recognition system. Attempts have been made to correct errors. However, there may be uncorrected grammatical, spelling, and recognition errors present. The file time of this note does not necessarily represent the time of service. Discharge Plan Discharge Clinical Impression: Cellulitis of foot, right Patient Disposition: Home Condition: Stable Instructions: Antibiotic Form, Cellulitis (ED) Additional Instructions: Take medications as prescribed. Take hydroxyzine as needed for itching. This medication may cause drowsiness. Do not take while driving. Follow-up with your primary care physician if symptoms are not improving. Patient Language: Welsh Prescriptions: New cephalexin 500 mg capsule 500 mg PO Q8H 7 Days Qty: 21 0RF methylprednisolone [Medrol (Oneal)] 4 mg tablets,dose pack See Rx Instructions PO .COMPLEX Qty: 21 0RF Rx Instructions: orally per package directions hydroxyzine HCl 10 mg tablet 10 mg PO Q6-8H PRN (Reason: itching) Qty: 30 0RF No Action multivitamin Tablet 1 tablet PO DAILY Juice Plus 4 cap PO DAILY Lo Loestrin Fe 1 mg-10 mcg (24)/10 mcg (2) tablet 1 tablet PO DAILY buspirone 15 mg tablet 15 mg PO Follow-up/Referrals: UNKNOWN,DOCTOR [Primary Care Provider] - Time of Disposition: 14:22
--- OUTSIDE RECORDS SUMMARY | 2024-09-30 15:38 | XMS_ITS | Encounter Summary ---
Author Organization [facility] Address [facility] [place] [address] Care Team Providers Care Forest Economics Professor Name Role Phone Elise Keyes Primary Care Provider [phone] Encounter Details Date Type Department Care Team (Late st Contact Info) Description 09/06/2022 Meldium Message Enc [facility] Medical Group Family & Internal Medicine [facility] [id number] [place] [phone] [place]es [place] [id number] [place] [id number] colonoscopy Social History Tobacco Use Types Packs/Day Years Used Date Smoking Tobacco: Former Cigarettes 0.3 10 1 998 - 2007 Passive Smoke Exposure: Past Smokeless Tobacco: Never Alcohol Use Standard Drinks/Week Comments Yes 0 (1 standard drink = 0.6 oz pur e alcohol) AUDIT-C Answer Date Recorded Frequency of Alcohol Consumption 2-4 times a sat10/16/2018 Average Number of Drinks 1 or 2 019 Frequency of Binge Drinking Never 09/23 PHQ-2 Answer Date Recorded Patient Health Questionnaire-2 Score 0 08/22/2022 Comments No Sex and Gender Information Value Date Recorded Sex Assigned at Not on file Legal Sex Female 11:12 PM CDT Gender Identity Not on file Sexual Orientation Not on file COVID-19 Exposure Response Date Recorded In the last 10 days, have yo u been in contact with someone who was confirmed or suspected to have Coronavirus/COVID-19? Unable to assess 08/22/2022 7:49 AM SPRING FORMER documented as of this encounter Plan of Treatment Not on file documented as of this encounter Visit Diagnoses Not on filedocumented in this encounter Care Teams Forest Economics Professor Relationship Specialty [place] [address] [address] [place] [address] PCP - General PHYSICIAN LOCAL ANNOUNCER 10/12/20 documented as of this encounter
--- OUTSIDE RECORDS SUMMARY | 2024-09-30 15:38 | XMS_ITS | Encounter Summary ---
Author Organization [facility] Address [facility] [place] [address] Care Team Providers Care Clip Bolter And Wrapper Name Role Phone Elise Keyes Primary Care Provider [phone] Encounter Details Date Type Department Care Team (Late st Contact Info) Description 12/18/2021 TalkBin Message Enc [facility] Medical Group Family & Internal Medicine [facility] [address] [place] [phone] [facility] results Social History Tobacco Use Types Packs/Day Years Used Date Smoking Tobacco: Former Cigarettes 0.3 10 1 998 - 2007 Smokeless Tobacco: Never Alcohol Use Standard Drinks/Week Comments Yes 0 (1 standard drink = 0.6 oz pur e alcohol) AUDIT-C Answer Date Recorded Frequency of Alcohol Consumption 2-4 times a sat10/16/2018 Average Number of Drinks 1 or 2 019 Frequency of Binge Drinking Never 09/23 PHQ-2 Answer Date Recorded PHQ-2 Score - If the patient scores above 3, please move on to questions 3-9 0 10/16/2021 Comments No Sex and Gender Information Value Date Recorded Sex Assigned at Not on file Legal Sex Female 11:12 PM CDT Gender Identity Not on file Sexual Orientation Not on file documented as of this encounter Plan of Treatment Not on file documented as of this encounter Visit Diagnoses Not on filedocumented in this encounter Care Teams Clip Bolter And Wrapper Relationship Specialty [place] [address] [place] [address] PCP - General PHYSICIAN MASSOTHERAPIST 10/12/20 documented as of this encounter
--- OUTSIDE RECORDS SUMMARY | 2024-09-30 15:38 | XMS_ITS | Encounter Summary ---
Author Organization [facility] Address [address] [facility] [place] [address] Care Team Providers Care Hardwood Flooring Specialist Name Role Phone Keke Rothman MD Primary Care Provider [phone] Encounter Details Date Type Department Care Team (Late st Contact Info) Description 05/06/2020 Lab Requisition [facility] Derm[facility] Lab [address] [place] [id number] Earl Humphrey MD [address] [facility] [place] [address] Social History Tobacco Use Types Packs/Day Years Used Date Smoking Tobacco: Never Assessed Sex and Gender Information Value Date Recorded Sex Assigned at Not on file Gender Identity Not on file Sexual Orientation Not on file documented as of this encounter Plan of Treatment Not on file documented as of this encounter Procedures Procedure Name Priority Date/Time Associated Diagnosis Comments DERMATOPATHOLOGY Routine 05/04/2020 12:0 0 AM DAIRY FEED WORKER documented in this encounter Results * DERMATOPATHOLOGY (05/04/2020 12:00 AM DAIRY FEED WORKER) Case Report Dermatopathology Report Case: [id number] Authorizing Provider: Earl Humphrey MD Collected: 05/04/2020 12:00 AM Ordering Location: [facility] Derm[facility] Lab Received: 05/06/2020 06:25 AM Pathologist: Pallavi Caballero MD Specimen: Skin, mid chest 0 4:46 PM DAIRY FEED WORKER DERMATOPATHOLOGY LABORATORY Final Diagnosis Specimen A. SKIN, mid chest: LICHEN PLANUS-LIKE KERATOSIS (BENIGN LICHENOID KERATOSIS) (L82.1) (see microscopic description and comment) 0 4:46 PM DAIRY FEED WORKER DERMATOPATHOLOGY LABORATORY Clinical History Bernard's vs other. Path # [id number]. 0 4:46 PM [facility] DERMATOPATHOLOGY LABORATORY Gross Description Specimen A: Received is one formalin filled container labeled with the patient's name and designated mid chest. The specimen consists of a shave biopsy measuring [id number]. Jar 0. 0 4:46 PM [facility] DERMATOPATHOLOGY LABORATORY Microscopic Description Specimen A. SKIN, mid chest: The epidermis is mildly acanthotic. There is a lichenoid infiltrate with vacuolar changes of basilar keratinocytes and scattered necrotic keratinocytes. Additional deeper sections were obtained and reviewed. COMMENT: The histologic findings of Bernard's disease (transient acantholytic dermatosis) are not present in multiple deeper sections examined. 0 4:46 PM [facility] DERMATOPATHOLOGY LABORATORY Disclaimer An external and internal positive and negative controls are appropriate for the histochemical, immunohistochemical and immunofluorescence stain(s) in this case (if any), except where stated explicitly. The performance characteristics of the stain(s) cited in this report were developed and its performance characteristic determined by the Dermatopathology Laboratory at [facility], directed by Dr. Joaquín Portillo. These tests need not be, and therefore are not, approved by the [place] Food and Drug Administration. The tests are used for clinical purposes. Billing Codes Specimen Charges Stain Charges 79266 1 0 4:46 PM DAIRY FEED WORKER DERMATOPATHOLOGY LABORATORY Embedded Images 0 4:46 PM [facility] DERMATOPATHOLOGY LABORATORY Pathology/Cytolog y TISSUE SPECIMEN FROM SKIN / Unknown 05/04/2020 05/06/2020 6:25 AM DAIRY FEED WORKER Earl Humphrey MD LAB - PATHOLOGY/CYTO LOGY ORDERABLES DERMATOPATHOLOGY LABORATORY [facility] - Department of Dermatology [facility] Medicine [address] [place] [address], [address] [phone] documented in this encounter Visit Diagnoses Not on filedocumented in this encounter Care Teams Hardwood Flooring Specialist Relationship Specialty Start Date End Date Keke Rothman MD [address] [place] [phone] PCP - General 05/05/20 documented as of this encounter
--- OUTSIDE RECORDS SUMMARY | 2024-09-30 15:38 | XMS_ITS | Encounter Summary ---
Author Organization [facility] Address [facility] [place] [address] Care Team Providers Care Pipeline Inspector Name Role Phone Elise Keyes Primary Care Provider [phone] Encounter Details Date Type Department Care Team (Late st Contact Info) Description 09/07/2022 Zulahoo Message [facility] [address] [place] [address] Myccarmita, [facility] Provider Patient Amendment Request Social History Tobacco Use Types Packs/Day Years Used Date Smoking Tobacco: Former Cigarettes 0.3 10 1 2007 Passive Smoke Exposure: Past Smokeless Tobacco: [...] Coronavirus/COVID-19? Unable to assess 08/22/2022 7:49 AM SUPERVISOR BRINE documented as of this encounter Plan of Treatment Not on file documented as of this encounter Visit Diagnoses Not on filedocumented in this encounter Care Teams Pipeline Inspector Relationship Specialty [place] [address] [place] [address] PCP - General PHYSICIAN WEB DESIGN SPECIALIST 10/12/20 documented as of this encounter
--- OUTSIDE RECORDS SUMMARY | 2024-09-30 15:38 | XMS_ITS | Clinical Summary ---
Author Organization [facility] Address [address] [facility] [place] [address] Care Team Providers Care Sports Apparel Internship Name Role Phone Keke Rothman MD Primary Care Provider [phone] Source Comments [facility],non-owned Affiliates and Associated Physician Practices is amultiple site organization consisting of ambulatory clinics and hospital sitesin [place], [place], [place] and [place]. This disclosure is being madepursuant to the Care Everywhere program and may not contain all information available regarding this patient. Last updated 18.[facility] [employer] Social History Tobacco Use Types Packs/Day Years Used Date Smoking Tobacco: Never Assessed Sex and Gender Information Value Date Recorded Sex Assigned at Not on file Gender Identity Not on file Sexual Orientation Not on file Plan of Treatment Health Maintenance Due Date Last Done Comments LIPID TESTING 1983 MAMMOGRAM 1983 PAP SMEAR 1983 HIV SCREENING 1998 HEPATITIS C SCREENING 06/07/2001 DTAP/TDAP/TD VACCINES (1 - Tdap) 2002 HEPATITIS B VACCINE (1 of 3 - 19+ 3-dose series) 2002 COVID-19 VACCINE ( - 2023-2 5 season) 2024 DEPRESSION SCREENING 06/24/2024 INFLUENZA VACCINE (Season Ended) 2025 ZOSTER VACCINE (1 of 2) 2033 HIB VACCINE Aged Out No longer eligi ble based on patient's age to complete this topic HPV VACCINE Aged Out No longer eligi ble based on patient's age to complete this topic MENINGOCOCCAL (Group B) VACC INE SHARED DECISION-MAKING Aged Out No longer eligibl e based on patient's age to complete this topic MENINGOCOCCAL GROUPS A/C/Y/W VACCINE Aged Out No longer eligible b ased on patient's age to complete this topic PNEUMOCOCCAL VACCINE Aged Out No long er eligible based on patient's age to complete this topic Care Teams Sports Apparel Internship Relationship Specialty Start Date End Date Keke Rothman MD [address] [place] [address] PCP - General 05/05/20
--- OUTSIDE RECORDS SUMMARY | 2024-09-30 15:38 | XMS_ITS | Encounter Summary ---
Author Organization [facility] Address [facility] [place] [address] Care Team Providers Care Cook Relief Name Role Phone Elise Keyes Primary Care Provider [phone] Encounter Details Date Type Department Care Team (Late st Contact Info) Description 07/20/2022 NaPopravku Message Enc [facility] Medical Group Family & Internal Medicine [facility] [address] [place] [address] Kirt, [facility] Provider Appointment Social History Tobacco Use Types Packs/Day Years [...] Date Recorded Patient Health Questionnaire-2 Score 0 2022 Comments No Sex and Gender Information Value Date Recorded Sex Assigned at Not on file Legal Sex Female 11:12 PM CDT Gender Identity Not on file Sexual Orientation Not on file documented as of this encounter Plan of Treatment Not on file documented as of this encounter Visit Diagnoses Not on filedocumented in this encounter Care Teams Cook Relief Relationship Specialty [place] [address] [place] [address] PCP - General PHYSICIAN PAN PULLER 10/12/20 documented as of this encounter
--- OUTSIDE RECORDS SUMMARY | 2024-09-30 15:38 | XMS_ITS | Encounter Summary ---
Author Organization [facility] Address [address] [place] [address] Care Team Providers Care Asphalt Paving Supervisor Name Role Phone Keke Rothman MD Primary Care Provider [phone] Encounter Details Date Type Department Care Team (Late st Contact Info) Description 07/08/2020 Lab Requisition [facility] [address] [place] [id number] Earl Humphrey MD [address] [address] Social History Tobacco Use Types [...] Priority Date/Time Associated Diagnosis Comments DERMATOPATHOLOGY Routine 07/06/2020 3:27 AM PHYSICAL SECURITY SPECIALIST documented in this encounter Results * DERMATOPATHOLOGY (07/06/2020 3:27 AM PHYSICAL SECURITY SPECIALIST) Case Report Dermatopathology Report Case: [id number] Authorizing Provider: Earl Humphrey MD Collected: 07/06/2020 03:27 AM Ordering Location: [facility] Received: 07/08/2020 06:34 AM Pathologist: Sherlyn Ibarra MD Specimen: Skin, right lower breast 1:25 PM PHYSICAL SECURITY SPECIALIST DERMATOPATHOLOGY LABORATORY Final Diagnosis Specimen A. 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 Path # [id number]. 1 1:25 PM [facility] DERMATOPATHOLOGY LABORATORY Gross Description Specimen A: Received is one formalin filled container labeled with the patient's name and designated right lower breast. The specimen consists of a shave biopsy measuring [id number]. Jar 0. 1 1:25 PM [facility] DERMATOPATHOLOGY LABORATORY Microscopic Description Specimen A. SKIN, right lower breast: Sections show acantholysis, dyskeratosis, and an inflammatory cell infiltrate. COMMENT: In the correct clinical setting these histological findings can be seen in transient acantholytic dermatosis (Mcdonald's disease). 1 1:25 PM [facility] DERMATOPATHOLOGY LABORATORY Disclaimer An external and internal positive and negative controls are appropriate for the histochemical, immunohistochemical and immunofluorescence stain(s) in this case (if any), except where stated explicitly. The performance characteristics of the stain(s) cited in this report were developed and its performance characteristic determined by the Dermatopathology Laboratory at [facility], directed by Dr. Joaquín Portillo. These tests need not be, and therefore are not, approved by the [place] Food and Drug Administration. The tests are used for clinical purposes. Billing Codes Specimen Charges Stain Charges 36859 1 1 1:25 PM [facility] DERMATOPATHOLOGY LABORATORY Embedded Images 1 1:25 PM [facility] DERMATOPATHOLOGY LABORATORY Pathology/Cytolo gy TISSUE SPECIMEN FROM SKIN / Unknown 07/06/2020 3:27 AM PHYSICAL SECURITY SPECIALIST 07/08/2020 6:34 AM PHYSICAL SECURITY SPECIALIST Earl Humphrey MD LAB - PATHOLOGY/CYTO LOGY ORDERABLES DERMATOPATHOLOGY LABORATORY [facility] - Department of Dermatology [address], [address] [phone] documented in this encounter Visit Diagnoses Not on filedocumented in this encounter Care Teams Asphalt Paving Supervisor Relationship Specialty Start Date End Date Keke Rothman MD [address] [place] [address] PCP - General 05/05/20 documented as of this encounter
--- OUTSIDE RECORDS SUMMARY | 2024-09-30 15:38 | XMS_ITS | Clinical Summary ---
Author Organization [facility] Address [address] [place] [address] Care Team Providers Care Chair Post Machine Operator Name Role Phone Elise Keyes Primary Care Provider [phone] Allergies No known active allergies Medications Nutritional Supplements (JUICE PLUS FIBRE) Liquid 05/12/2015 Activ e cholecalciferol (VITAMIN D3) 125 MCG (5000 UT) Tab Take 1 tablet (5,000 Units total) by mouth daily. Active LO LOESTRIN FE 1 MG-10 MCG / 10 MCG Tab Take 1 tablet by mouth daily. 10/02/2021 Active Multiple Vitamins-Mineral s (MULTIVITAL OR) Active Probiotic Product (PROBIOTIC-10 OR) 02/16/2024 Active busPIRone (BUSPAR) 15 MG tabletIndication s:Anxiety 2 pills twice daily 180 tablet 3 03/17/2024 Active Active Problems Problem Noted Date Diagnosed Date Adenomatous polyp of descending colon 2022 Overview (2022): High-grade needs repeat in 1 year then every 3-5 depending on the findings Injury of nose, initial encounter 05/07/2022 Abdominal wall bulge 10/16/2018 Immunizations Name Administration Dates Next Due Dtap (Generic) 05/23/2016, 9,12/30/1984,1983,1983,1983 Dtap/Hep B/Ipv 05/23/2016, 9,12/30/1984,1983,1983,1983 Hepatitis B 07/29/1998,02/24/1998,01/21/1998 Influenza (Generic) 03/25/2016 Influenza Adult (Generic) 04/11/2022,04/03/2018, 03/25/2016 MMR (Generic) 02/13/1993,09/25/1984 Td 01/21/1998 Tdap (Generic) 05/22/2016,01/12/2015,11/24/2014 ,09/23/2007 Family History Medical History Relation Comments Hyperlipidemia Father Hypertension Father Cancer Maternal Grandfather Colon Heart Disease Maternal Grandfather Asthma Mother Cancer Mother Breast Hyperlipidemia Mother Cancer Paternal Grandfather Leukemia COPD Paternal Grandmother Diabetes Paternal Grandmother Relation Status Comments Father Alive Maternal Grandfather Mother Alive Paternal Grandfather Paternal Grandmother Sister Alive Social History Tobacco Use Types Packs/Day Years Used Date Smoking Tobacco: Former Cigarettes 0.3 10 1 998 - 2007 Passive Smoke Exposure: Past Smokeless Tobacco: Never Tobacco Cessation:Counseling Given: No Alcohol Use Standard Drinks/Week Comments Yes 0 [...] on file Sexual Orientation Not on file Last Filed Vital Signs Vital Sign Reading Time Taken Comments Blood Pressure 138/86 03/17/2024 8:01 AM CDT Pulse 75 03/17/2024 8:01 AM CDT Temperature 36.2 C (97.2 F) 03/17/2024 8:01 AM CDT Respiratory Rate 20 03/17/2024 8:01 AM CDT Oxygen Saturation 98% 03/17/2024 8:01 AM CDT Inhaled Oxygen Concentration - - Weight 73.5 kg (162 lb) 03/17/2024 8:01 AM CDT Height 167.6 cm (5' 6 ) 03/17/2024 8:01 AM CDT Body Mass Index 26.15 03/17/2024 8:01 AM CDT Plan of Treatment Health Maintenance Due Date Last Done Comments Cervical Cancer Screening Pap Smear (Age 30 to 64) Every 3 Years 1983 Hepatitis C 2001 Cervical Cancer Screening Pap with HPV Testing (Age 30 to 64) Every 5 Years 2013 Cervical Cancer Screening with HPV 2013 COVID-19 Vaccine ( season) 2024 07/19/2020, 06/28/2020 PHQ-2 (Physician [place]) 06/24/2024 Annual Physical 03/17/2025 03/17/2024, 04/2 10/2021, 10/13/2020, Additional history exists DTaP, Tdap and Td Vaccines (12 - Td or Tdap) 05/23/2026 05/23/2016, 05/23/2016, 05/22/2016, Additional history exists Mammogram Screening 06/04/2026 06/04/2024, 05/30/2023, 11/18/2018 Hepatitis B Vaccines Completed 05/23/2016, 07/29/1998, 02/24/1998, Additional history exists HPV Vaccines Aged Out No longer eligi ble based on patient's age to complete this topic Meningococcal B Vaccine Aged Out No l onger eligible based on patient's age to complete this topic Meningococcal Vaccine Aged Out No tavares maurisio eligible based on patient's age to complete this topic Pneumococcal Vaccine: Pediatrics (0 to 5 Years) and At-Risk Patients (6 to 64 Years) Aged Out No longer eligible based on patient's age to complete this topic RSV Immunizations Under 20 Months Aged Out No longer eligible based on patient's age to complete this topic Procedures Procedure Name Priority Date/Time Associated Diagnosis Comments MAMMOGRAM GENERIC (SCAN ORDER) 06/04/2024 from Last 3 Months or Most Recently Relevant to Health Maintenance Results * MAMMOGRAM GENERIC (SCAN ORDER) (06/04/2024) Anatomical Region Laterality Modality Other 06/04/2024 [facility] Scanned SCANNING Final Resu lt from Last 3 Months or Most Recently Relevant to Health Maintenance Insurance [employer] Care Teams Chair Post Machine Operator Relationship Specialty [place] [address] [place] [address] PCP - General PHYSICIAN BEZEL CUTTER 10/12/20
== END 2024-09-30 14:26 | disposition home or self-care (01) ==
PROVIDERS: Emergency Provider Nurse Practitioner Family
DX: L03.031 Cellulitis of right toe (principal); Z87.891 Personal history of nicotine dependence; K63.5 Polyp of colon
CPT/HCPCS: 99213; G0463